=== PATIENT | female | born 1995 | race Caucasian/White ===

== ENCOUNTER → 2017-08-29 | Outpatient (CLI) | payer BC ==
[~2017-08-29] MED LIST: CETI10TA10 PO; MONT1TAB3 PO; PROB1TAB16 PO
== END | disposition home or self-care (01) ==
LOC: C.RDSM 10:57
PROVIDERS: ATTEND Family Medicine Sports Medicine
DX: M79.606 Pain in leg, unspecified (principal)

== ENCOUNTER → 2017-10-24 | Outpatient (CLI) | payer BC | END | disposition home or self-care (01) | LOC: C.RDSM 19:51 | PROVIDERS: ATTEND Family Medicine Sports Medicine | DX: M25.571 Pain in right ankle and joints of right foot (principal) ==